=== PATIENT | male | born 2000 | race Caucasian/White ===

== ENCOUNTER 2025-07-02 11:25 | Emergency (ER) | payer OTHER ==
[2025-07-02] MEDS ORDERED: Ibuprofen 200 MG TAB ONE (12:08)
[2025-07-02] MEDS ORDERED: Acetaminophen 500 MG TAB ONE (12:09)
== END 2025-07-02 15:10 | disposition home or self-care (01) ==
LOC: CSHERS 11:25
DX: M25.571 Pain in right ankle and joints of right foot (principal)
CPT/HCPCS: 99283